=== PATIENT | male | born 1950 | race Asian ===

== ENCOUNTER 2023-04-12 09:23 | Observation (INO) | payer SELFPAY ==
[2023-04-12] VITALS (76 sets, daily range): BP systolic 85–175; BP diastolic 56–112; PULSE 58–136; RESP 0–46; TEMP 36.5–39.1; O2SAT 91–100; BMI 26.0; BMI 23.5
--- NOTE | 2023-04-12 10:13 | XR_ITS ---
[facility] [place] [id number] Patient Name: NANCY REYNOLDS MRN: [id number] date: 1950 Sex: M Assigned Patient Location: ER Current Patient Location: ER Accession/Order Number: [id number] Exam Date: 04/12/2023 10:27 Report Date: 04/12/2023 10:41 At the request of: NHUNG FOX Procedure: XR chest 1V EXAM: XR chest 1V HISTORY: shortness of breath COMPARISON: None. TECHNIQUE: Single view of the chest FINDINGS: Low lung volumes. Unremarkable cardiomediastinal silhouette. No definitive consolidation, pleural effusion, pulmonary congestion or pneumothorax. IMPRESSION: No acute findings. Left basilar opacities difficult to exclude given technique. Electronically authenticated by: KELSY MEDRANO Date: 04/12/2023 10:41
--- NOTE | 2023-04-12 10:13 | ECG_ITS ---
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: : 1950 Requested By: Order Number: [id number] Reading MD: ELENI TRISTAN Measurements Intervals [place] Rate: 131 P: -[id number] AR: -[id number] QRS: 69 QRSD: 74 T: 256 QT: 328 QTc: 405 Interpretive Statements 28731 Atrial fibrillation with rapid ventricular response [address] depression, probably digitalis effect 85166 Twave abnormality, possible lateral ischemia or digitalis effect 19949 Twave abnormality, possible inferior ischemia or digitalis effect 8102 Low QRS voltage in chest leads 9150 abnormal ECG No previous ECG available for comparison Electronically Signed On 04-14-2023 5:39:55 EDT by ELENI TRISTAN
--- NOTE | 2023-04-12 10:23 | CT_ITS ---
[address] [address] Patient Name: NANCY REYNOLDS MRN: [id number] date: 1950 Sex: M Assigned Patient Location: ED.MAIN Current Patient Location: Accession/Order Number: [id number] Exam Date: 04/12/2023 11:40 Report Date: 04/12/2023 12:25 At the request of: NHUNG FOX Procedure: CT abdomen pelvis w con EXAMINATION: CT abdomen pelvis w con HISTORY: pain , abdominal pain, shortness of breath, weakness COMPARISON: No relevant comparison available. TECHNIQUE: Axial, Coronal, and Sagittal images were obtained without and/or with IV contrast as indicated by examination type. Dose reduction techniques were achieved by using automated exposure control and/or adjustment of mA and/or kV according to patient size and/or use of iterative reconstruction technique. FINDINGS: LUNG BASES: No visible pulmonary or pleural disease. LIVER: No enlargement, atrophy, suspicious density, or significant focal lesion. BILIARY: Enlarged gallbladder without appreciable stones, wall thickening, or obstruction. PANCREAS: No lesion, fluid collection, or abnormal duct dilatation. SPLEEN: No enlargement or focal lesion. ADRENALS: 9 mm left adrenal nodule, nonspecific. KIDNEYS: No mass, obstruction, or calcification. BOWEL/MESENTERY: Fluid-filled loops of small bowel without abnormal dilation. No visible mass, obstruction, or bowel wall thickening. AORTA/VASCULAR: No aneurysm or dissection. RETROPERITONEUM: No mass or adenopathy. LYMPH NODES: No adenopathy. URINARY BLADDER: No visible focal wall thickening, lesion, or calculus. PELVIC ORGANS: No visible mass. Pelvic organs appropriate for patient age. ABDOMINAL WALL: No mass or hernia. BONES: No bony lesion or fracture. OTHER: Negative. IMPRESSION: 1.Enlarged gallbladder, likely due to stasis/lack of emptying. No appreciable inflammatory changes or stones. Consider ultrasound evaluation if clinically suspicious. 2.Fluid-filled loops of small bowel without wall thickening or obstruction. Possible mild enteritis. Electronically authenticated by: VISHNU ZHOU Date: 04/12/2023 12:25
--- NOTE | 2023-04-12 10:24 | ED.GENADUL1 ---
HPI - General Adult General Chief complaint: Weakness Stated complaint: GENERRAL WEAKNESS Time Seen by Provider: 04/12/23 10:18 Source: family and spanish interpreter/translator Mode of arrival: Wheelchair Limitations: language barrier Limitations comment: Boat Worker. History of Present Illness HPI narrative: Patient presents to emergency Department via private car with complaint of weakness. Patient traveled [facility] on a direct flight from [place] 5 days ago. Thursday he developed a sore throat. Did not have any other symptoms. Following they started getting weak. Yesterday he was feeling constipated. He denies any cough. At one in the morning he felt very weak he couldn't even get up to go to the bathroom. He was having some low back pain and they found him to have a fever. She states it was Hard for him to stand up because of the weakness. He complained of shortness of breath denies any chest pain. He denies any nausea, vomiting or diarrhea. There are no other sick contacts in the household. He has a history of an arrhythmia for which he is on several to. Patient denies any trauma. He denies any headache. He denies any hematuria, dysuria. Patient's medications (obtained and translated to the best of our knowledge from tongan packing): Dicyclomine 1 mg, candesartan 8 mg, amlodipine 10 mg, carvedilol 10 mg, Vanoprazan 10 mg, Xarelto 10 mg. Related Data Home Medications Medication Instructions Recorded Confirmed Unobtainable 04/12/23 04/12/23 Allergies Allergy/AdvReac Type Severity Reaction Status Date / Time No Known Drug Allergies Allergy Verified 04/12/23 09:46 Review of Systems ROS Narrative ROS: Unless otherwise stated in this report the patient's positive and negative responses for review of systems for constitutional, eyes, ENT, cardiovascular, respiratory, gastrointestinal, neurological, , musculoskeletal and integument systems and related systems to the presenting problem are either stated in the history of present illness or were not pertinent or were negative for the symptoms and/or complaints related to the presenting medical problem. [facility] Medical History (Updated 04/12/23 @ 17:54 by Cande Hargrove) Surgical History (Updated 04/12/23 @ 17:54 by Cande Hargrove) Social History (Updated 04/12/23 @ 17:55 by Cande Hargrove) Within the past year, how often did you have six or more drinks on one occasion: less than monthly Smoking status: Never smoker Non-prescribed substance use: denies use Exam Narrative Exam Narrative: Nurses notes and vital signs reviewed and patient is not hypoxic. General: Ill appearing,in no apparent distress. Skin: Warm, dry, no pallor noted. mottled No Rash Head: Normocephalic, atraumatic. Neck: Supple, non-tender. Eye: Pupils are equal, round and EOMI. No scleral icterus. Ears, Nose, Mouth, and Throat: TM clear, no posterior oropharynx erythema or nasal mucosal hypertrophy, uvula is mid-line Oral mucosa is moist Cardiovascular: Irregular tachycardia without murmur, gallop or rub. Respiratory: Tachypneic, no accessory muscle use or respiratory distress. Lungs: Occasional bilateral rhonchi Chest Wall: no tenderness Back: No midline thoracic or lumbar vertebral tenderness. No CVA tenderness Musculoskeletal: normal ROM, no calf or popliteal tenderness, no lower extremity edema/swelling GI: Abdomen is soft, non-distended. Normal bowel sounds. No masses appreciated. mild llq tenderness to palpation. No rebound, guarding, or rigidity noted. Neurological: A&O x4. No cranial nerve dysfunction observed. No truncal ataxia. Moves all extremities. Sensation intact. Psychiatric: Cooperative Constitutional Vital Signs - 24 hr 04/12/23 10:30 04/12/23 10:33 04/12/23 11:10 Temperature 99.9 F H Pulse Rate Pulse Rate [Monitor] 121 H Respiratory Rate 32 H Blood Pressure Blood Pressure [Right Arm] 134/77 H Pulse Oximetry 98 98 Oxygen Delivery Method Nasal Cannula Room Air Oxygen Delivery Flow Rate 3 04/12/23 11:32 04/12/23 11:59 04/12/23 12:19 Temperature 102.4 F H Pulse Rate 103 H Pulse Rate [Monitor] Respiratory Rate 24 Blood Pressure Blood Pressure [Right Arm] Pulse Oximetry 98 97 Oxygen Delivery Method Nasal Cannula Oxygen Delivery Flow Rate 2 2 04/12/23 13:41 04/12/23 15:38 04/12/23 16:12 Temperature 98.9 F Pulse Rate 84 77 Pulse Rate [Monitor] Respiratory Rate 18 18 Blood Pressure 102/69 106/72 117/65 Blood Pressure [Right Arm] Pulse Oximetry 96 94 L 95 Oxygen Delivery Method Room Air Oxygen Delivery Flow Rate 1 04/12/23 09:59 04/12/23 10:00 04/12/23 10:13 Temperature Pulse Rate 136 H 134 H 120 H Pulse Rate [Monitor] Respiratory Rate 42 H 40 H 46 H Blood Pressure Blood Pressure [Right Arm] Pulse Oximetry 96 91 L 93 L Oxygen Delivery Method Oxygen Delivery Flow Rate 04/12/23 10:14 04/12/23 10:23 04/12/23 10:30 Temperature Pulse Rate 120 H 125 H 110 H Pulse Rate [Monitor] Respiratory Rate 39 H 39 H 34 H Blood Pressure 175/112 H 133/86 H 134/77 H Blood Pressure [Right Arm] Pulse Oximetry 98 98 98 Oxygen Delivery Method Oxygen Delivery Flow Rate 04/12/23 10:45 04/12/23 11:00 04/12/23 11:15 Temperature Pulse Rate 101 H 116 H 105 H Pulse Rate [Monitor] Respiratory Rate 30 H 24 32 H Blood Pressure 154/87 H 130/98 H 148/107 H Blood Pressure [Right Arm] Pulse Oximetry 98 Oxygen Delivery Method Oxygen Delivery Flow Rate 04/12/23 11:26 04/12/23 11:31 04/12/23 11:54 Temperature Pulse Rate 97 H 86 Pulse Rate [Monitor] Respiratory Rate 30 H 10 L Blood Pressure 152/81 H 123/85 H Blood Pressure [Right Arm] Pulse Oximetry 98 Oxygen Delivery Method Oxygen Delivery Flow Rate 04/12/23 11:56 04/12/23 11:58 04/12/23 12:00 Temperature Pulse Rate 132 H 102 H 93 H Pulse Rate [Monitor] Respiratory Rate 28 H 25 H 23 Blood Pressure 127/80 H 119/76 Blood Pressure [Right Arm] Pulse Oximetry 97 97 97 Oxygen Delivery Method Oxygen Delivery Flow Rate 04/12/23 12:15 04/12/23 12:30 04/12/23 12:45 Temperature Pulse Rate 91 H 87 93 H Pulse Rate [Monitor] Respiratory Rate 20 21 20 Blood Pressure 114/72 122/64 H 111/78 Blood Pressure [Right Arm] Pulse Oximetry 98 97 97 Oxygen Delivery Method Oxygen Delivery Flow Rate 04/12/23 13:00 04/12/23 13:15 04/12/23 13:30 Temperature Pulse Rate 106 H 97 H 92 H Pulse Rate [Monitor] Respiratory Rate 19 20 18 Blood Pressure 115/79 106/73 102/69 Blood Pressure [Right Arm] Pulse Oximetry 96 96 96 Oxygen Delivery Method Oxygen Delivery Flow Rate 04/12/23 13:45 04/12/23 14:00 04/12/23 14:15 Temperature Pulse Rate 88 103 H 80 Pulse Rate [Monitor] Respiratory Rate 17 18 16 Blood Pressure 110/67 104/63 95/72 Blood Pressure [Right Arm] Pulse Oximetry 96 96 96 Oxygen Delivery Method Oxygen Delivery Flow Rate 04/12/23 14:30 04/12/23 14:45 04/12/23 15:00 Temperature Pulse Rate 81 85 94 H Pulse Rate [Monitor] Respiratory Rate 16 16 18 Blood Pressure 93/65 95/70 98/62 Blood Pressure [Right Arm] Pulse Oximetry 97 96 97 Oxygen Delivery Method Oxygen Delivery Flow Rate 04/12/23 15:15 04/12/23 15:25 04/12/23 15:30 Temperature Pulse Rate 79 94 H 76 Pulse Rate [Monitor] Respiratory Rate 18 19 18 Blood Pressure 85/60 L 106/68 106/72 Blood Pressure [Right Arm] Pulse Oximetry 97 95 92 L Oxygen Delivery Method Oxygen Delivery Flow Rate 04/12/23 15:45 04/12/23 16:00 04/12/23 16:15 Temperature Pulse Rate 73 77 82 Pulse Rate [Monitor] Respiratory Rate 18 17 18 Blood Pressure 106/69 117/65 91/64 Blood Pressure [Right Arm] Pulse Oximetry 94 L 96 95 Oxygen Delivery Method Oxygen Delivery Flow Rate 04/12/23 16:30 04/12/23 16:45 04/12/23 09:46 Temperature 99.6 F Pulse Rate 80 75 Pulse Rate [Monitor] 123 H Respiratory Rate 18 17 36 H Blood Pressure 85/61 L 103/59 L Blood Pressure [Right Arm] 164/104 H Pulse Oximetry 96 96 Oxygen Delivery Method Nasal Cannula Oxygen Delivery Flow Rate Course Reevaluation(s) Reevaluation #1: Patient's heart rate improved after the 30ml/per kilogram IV fluids. Consultations Consultation #1: Patient was discussed with Dr. Wyman who advised the patient needs to have a HIDA scan done tomorrow. He advised the patient can be admitted to our facility with the surgery consult tomorrow morning. Vital Signs Vital signs: Vital Signs Temperature 99.6 F 04/12/23 09:46 Pulse Rate 123 H 04/12/23 09:46 Respiratory Rate 36 H 04/12/23 09:46 Blood Pressure 164/104 H 04/12/23 09:46 Pulse Oximetry 96 04/12/23 09:46 Oxygen Delivery Method Nasal Cannula 04/12/23 09:46 Temperature 97.7 F 04/12/23 19:15 Pulse Rate 68 04/12/23 19:08 Respiratory Rate 16 04/12/23 19:08 Blood Pressure 99/56 L 04/12/23 19:08 Pulse Oximetry 96 04/12/23 17:20 Oxygen Delivery Method Room Air 04/12/23 17:20 Oxygen Delivery Flow Rate 1 04/12/23 13:41 Medical Decision Making MDM Narrative Medical decision making narrative: full Covid precautions were maintained while evaluating the patient. Patient had an IV established. 30 Ml/ kilogram ns boluses were given to the patient. He was started on Zosyn and vancomycin. The patients heart rate improved with the fluid bolus. He was given Tylenol and ibuprofen which helped some defervescence. He rested and his oxygenation remained stable. All results were discussed with patient's daughter and at the bedside and brought son-in-law. [email or web address] search engine was used to determine the patient's home medications. Patient was discussed with Dr. Wyman was advised the patient can be admitted to our facility. CT scan abdomen and pelvis showed possible cholecystitis and Was Ordered. Those Results Were Discussed with the Surgeon. The HIDA Scan Is Recommended for Tomorrow. The Patient Was Tachycardic When He Arrived to the Emergency Department Troponin Levels Were Checked and the 2nd Troponin Was Elevated but the 3rd Troponin Remained Stable. His Most Likely Due to the Patient's Ventricular Rate and Secondary Injury Not to Any Acute Myocardial Infarction. The Patient Is on xarelto. Patient's lactic acidosis resolved with treatment. Patient's clinical condition and perfusion looked better and skin color improved with treatment.The patient was discussed with Dr. Cartagena for admission. Medical Records Medical records reviewed: Yes I reviewed the patient's medical records Lab Data Lab results reviewed: Yes I reviewed the patient's lab results Labs: Lab Results 04/12/23 04/12/23 04/12/23 Range/Units 09:57 10:00 10:55 WBC 7.6 (4.0-11.0) 10^3/uL RBC 5.13 (4.70-6.10) 10^6/uL Hgb 15.2 (14.0-18.0) g/dL Hct 45.2 (42.0-54.0) % MCV 88.1 (80.0-94.0) fL MCH 29.6 (25.9-34.0) pg MCHC 33.6 (29.9-35.2) g/dL RDW 13.1 (11.0-15.0) % Plt Count 234 (150-450) 10^3/uL MPV 9.5 (9.5-13.5) fL Neut % (Auto) 88.5 H (43.0-75.0) % Lymph % (Auto) 5.4 L (20.5-60.0) % [place] % (Auto) 5.4 (1.7-12.0) % Eos % (Auto) 0.1 L (0.9-7.0) % Baso % (Auto) 0.1 L (0.2-2.0) % Neut # (Auto) 6.8 H (1.4-6.5) 10^3/uL Lymph # (Auto) 0.4 L (1.2-3.8) 10^3/uL [place] # (Auto) 0.4 (0.3-0.8) 10^3/uL Eos # (Auto) 0.0 (0.0-0.7) 10^3/uL Baso # (Auto) 0.0 (0.0-0.1) 10^3/uL PT 12.0 H (9.0-11.6) sec INR 1.14 Sodium 129 L (136-145) mmol/L Potassium 3.5 (3.5-5.1) mmol/L Chloride 97 L (98-107) mmol/L Carbon Dioxide 24.4 (21.0-32.0) mmol/L Anion Gap 11.1 BUN 18.0 (7.0-18.0) mg/dL Creatinine 1.31 H (0.70-1.30) mg/dL Est GFR ( Amer) >60 (>=60) Est GFR (Non-Af Amer) 53 L (>=60) BUN/Creatinine Ratio 13.7 Glucose 118 H (74-106) mg/dL Lactate 2.9 H* (0.4-2.0) mmol/L Calcium 8.3 L (8.5-10.1) mg/dL Total Bilirubin 1.9 H (0.2-1.0) mg/dL AST 123 H (15-37) U/L ALT 147 H (16-63) U/L Troponin I High Sens 11.3 (4.0-76.1) pg/mL Total Protein 7.8 (6.4-8.2) g/dL Albumin 3.7 (3.4-5.0) g/dL Globulin 4.1 g/dL Albumin/Globulin Ratio 0.9 Lipase (73.0-393.0) U/L Urine Color (YELLOW) Urine Clarity (CLEAR) Urine pH (5.0-9.0) Ur Specific [place] (1.005-1.025) Urine Protein (NEG/TRACE) mg/dL Urine Glucose (UA) (NEGATIVE) mg/dL Urine Ketones (NEGATIVE) mg/dL Urine Occult Blood (NEGATIVE) Urine Nitrite (NEGATIVE) Urine Bilirubin (NEGATIVE) Urine Urobilinogen (0.2-1.0) EU/dL Ur Leukocyte Esterase (NEGATIVE) Urine RBC (0-2) #/HPF Urine WBC (NONE SEEN) #/HPF Ur Squamous Epith Cells (NONE/RARE) #/LPF Ur Culture Indicated? Adenovirus (PCR) Not detected (NOT DETECTE) C. pneumoniae DNA (PCR) Not detected (NOT DETECTE) Coronavirus Type OC43 Not detected (NOT DETECTE) Coronavirus Type HKU1 Not detected (NOT DETECTE) Coronavirus Type 229E Not detected (NOT DETECTE) Coronavirus Type NL63 Not detected (NOT DETECTE) Human Metapneumovir PCR Not detected (NOT DETECTE) M. pneumoniae (PCR) Not detected (NOT DETECTE) Parainfluenza PCR Not detected (NOT DETECTE) Parainfluenza 2 (PCR) Not detected (NOT DETECTE) Parainfluenza 3 (PCR) Not detected (NOT DETECTE) Parainfluenza 4 (PCR) Not detected (NOT DETECTE) RSV (RT-PCR) Not detected (NOT DETECTE) Entero/Rhino (PCR) Not detected (NOT DETECTE) SARS-CoV-2 (PCR) Not detected (NOT DETECTE) Streptococcus Screen Negative Bordetella pertussis (PCR) Not detected (NOT DETECTE) B parapertussis DNA PCR Not detected (NOT DETECTE) Influenza Type A (PCR) Not detected Influenza Type B (PCR) Not detected (NOT DETECTE) 04/12/23 04/12/23 04/12/23 Range/Units 11:26 11:51 12:47 WBC (4.0-11.0) 10^3/uL RBC (4.70-6.10) 10^6/uL Hgb (14.0-18.0) g/dL Hct (42.0-54.0) % MCV (80.0-94.0) fL MCH (25.9-34.0) pg MCHC (29.9-35.2) g/dL RDW (11.0-15.0) % Plt Count (150-450) 10^3/uL MPV (9.5-13.5) fL Neut % (Auto) (43.0-75.0) % Lymph % (Auto) (20.5-60.0) % [place] % (Auto) (1.7-12.0) % Eos % (Auto) (0.9-7.0) % Baso % (Auto) (0.2-2.0) % Neut # (Auto) (1.4-6.5) 10^3/uL Lymph # (Auto) (1.2-3.8) 10^3/uL [place] # (Auto) (0.3-0.8) 10^3/uL Eos # (Auto) (0.0-0.7) 10^3/uL Baso # (Auto) (0.0-0.1) 10^3/uL PT (9.0-11.6) sec INR Sodium (136-145) mmol/L Potassium (3.5-5.1) mmol/L Chloride (98-107) mmol/L Carbon Dioxide (21.0-32.0) mmol/L Anion Gap BUN (7.0-18.0) mg/dL Creatinine (0.70-1.30) mg/dL Est GFR ( Amer) (>=60) Est GFR (Non-Af Amer) (>=60) BUN/Creatinine Ratio Glucose (74-106) mg/dL Lactate 1.4 (0.4-2.0) mmol/L Calcium (8.5-10.1) mg/dL Total Bilirubin (0.2-1.0) mg/dL AST (15-37) U/L ALT (16-63) U/L Troponin I High Sens 80.1 H* (4.0-76.1) pg/mL Total Protein (6.4-8.2) g/dL Albumin (3.4-5.0) g/dL Globulin g/dL Albumin/Globulin Ratio Lipase 66.0 L (73.0-393.0) U/L Urine Color Lt. yellow (YELLOW) Urine Clarity Clear (CLEAR) Urine pH 6.0 (5.0-9.0) Ur Specific [place] 1.020 (1.005-1.025) Urine Protein Negative (NEG/TRACE) mg/dL Urine Glucose (UA) Negative (NEGATIVE) mg/dL Urine Ketones Negative (NEGATIVE) mg/dL Urine Occult Blood Small A (NEGATIVE) Urine Nitrite Negative (NEGATIVE) Urine Bilirubin Negative (NEGATIVE) Urine Urobilinogen 1.0 (0.2-1.0) EU/dL Ur Leukocyte Esterase Negative (NEGATIVE) Urine RBC 0-2 (0-2) #/HPF Urine WBC None seen (NONE SEEN) #/HPF Ur Squamous Epith Cells None seen (NONE/RARE) #/LPF Ur Culture Indicated? No Adenovirus (PCR) (NOT DETECTE) C. pneumoniae DNA (PCR) (NOT DETECTE) Coronavirus Type OC43 (NOT DETECTE) Coronavirus Type HKU1 (NOT DETECTE) Coronavirus Type 229E (NOT DETECTE) Coronavirus Type NL63 (NOT DETECTE) Human Metapneumovir PCR (NOT DETECTE) M. pneumoniae (PCR) (NOT DETECTE) Parainfluenza PCR (NOT DETECTE) Parainfluenza 2 (PCR) (NOT DETECTE) Parainfluenza 3 (PCR) (NOT DETECTE) Parainfluenza 4 (PCR) (NOT DETECTE) RSV (RT-PCR) (NOT DETECTE) Entero/Rhino (PCR) (NOT DETECTE) SARS-CoV-2 (PCR) (NOT DETECTE) Streptococcus Screen Bordetella pertussis (PCR) (NOT DETECTE) B parapertussis DNA PCR (NOT DETECTE) Influenza Type A (PCR) Influenza Type B (PCR) (NOT DETECTE) 04/12/23 Range/Units 15:28 WBC (4.0-11.0) 10^3/uL RBC (4.70-6.10) 10^6/uL Hgb (14.0-18.0) g/dL Hct (42.0-54.0) % MCV (80.0-94.0) fL MCH (25.9-34.0) pg MCHC (29.9-35.2) g/dL RDW (11.0-15.0) % Plt Count (150-450) 10^3/uL MPV (9.5-13.5) fL Neut % (Auto) (43.0-75.0) % Lymph % (Auto) (20.5-60.0) % [place] % (Auto) (1.7-12.0) % Eos % (Auto) (0.9-7.0) % Baso % (Auto) (0.2-2.0) % Neut # (Auto) (1.4-6.5) 10^3/uL Lymph # (Auto) (1.2-3.8) 10^3/uL [place] # (Auto) (0.3-0.8) 10^3/uL Eos # (Auto) (0.0-0.7) 10^3/uL Baso # (Auto) (0.0-0.1) 10^3/uL PT (9.0-11.6) sec INR Sodium (136-145) mmol/L Potassium (3.5-5.1) mmol/L Chloride (98-107) mmol/L Carbon Dioxide (21.0-32.0) mmol/L Anion Gap BUN (7.0-18.0) mg/dL Creatinine (0.70-1.30) mg/dL Est GFR ( Amer) (>=60) Est GFR (Non-Af Amer) (>=60) BUN/Creatinine Ratio Glucose (74-106) mg/dL Lactate (0.4-2.0) mmol/L Calcium (8.5-10.1) mg/dL Total Bilirubin (0.2-1.0) mg/dL AST (15-37) U/L ALT (16-63) U/L Troponin I High Sens 95.1 H* (4.0-76.1) pg/mL Total Protein (6.4-8.2) g/dL Albumin (3.4-5.0) g/dL Globulin g/dL Albumin/Globulin Ratio Lipase (73.0-393.0) U/L Urine Color (YELLOW) Urine Clarity (CLEAR) Urine pH (5.0-9.0) Ur Specific [place] (1.005-1.025) Urine Protein (NEG/TRACE) mg/dL Urine Glucose (UA) (NEGATIVE) mg/dL Urine Ketones (NEGATIVE) mg/dL Urine Occult Blood (NEGATIVE) Urine Nitrite (NEGATIVE) Urine Bilirubin (NEGATIVE) Urine Urobilinogen (0.2-1.0) EU/dL Ur Leukocyte Esterase (NEGATIVE) Urine RBC (0-2) #/HPF Urine WBC (NONE SEEN) #/HPF Ur Squamous Epith Cells (NONE/RARE) #/LPF Ur Culture Indicated? Adenovirus (PCR) (NOT DETECTE) C. pneumoniae DNA (PCR) (NOT DETECTE) Coronavirus Type OC43 (NOT DETECTE) Coronavirus Type HKU1 (NOT DETECTE) Coronavirus Type 229E (NOT DETECTE) Coronavirus Type NL63 (NOT DETECTE) Human Metapneumovir PCR (NOT DETECTE) M. pneumoniae (PCR) (NOT DETECTE) Parainfluenza PCR (NOT DETECTE) Parainfluenza 2 (PCR) (NOT DETECTE) Parainfluenza 3 (PCR) (NOT DETECTE) Parainfluenza 4 (PCR) (NOT DETECTE) RSV (RT-PCR) (NOT DETECTE) Entero/Rhino (PCR) (NOT DETECTE) SARS-CoV-2 (PCR) (NOT DETECTE) Streptococcus Screen Bordetella pertussis (PCR) (NOT DETECTE) B parapertussis DNA PCR (NOT DETECTE) Influenza Type A (PCR) Influenza Type B (PCR) (NOT DETECTE) ECG Data Attestation: I personally reviewed and interpreted this ECG as follows: Critical Care Time Critical Care Time Attestation: Critical Care Time: 60 minutes, critical care time is separate from any procedures that are performed. The following was considered in the determination of critical care but not limited to the level medical decision-making, intensive cardiac and/or respiratory monitor, frequent vital sign monitoring, evaluation of laboratory studies, evaluation of a radiographic studies, oxygen monitoring and constant monitoring. Discharge Plan Discharge Chief Complaint: Weakness Clinical Impression: Sepsis, Atrial fibrillation with rapid ventricular response, Acalculous cholecystitis Patient Disposition: Admitted As Inpatient Time of Disposition Decision: 16:20 Condition: Good Discharge Date/Time: 04/12/23 16:59
[2023-04-12] MEDS: 0.9 % SODIUM CHLORIDE 1,000 ML 999 ML IV (10:36)
[2023-04-12 10:42] LABS: Basophils Percent Auto 0.1 % (0.2-2.0); Eosinophils Percent Auto 0.1 % (0.9-7.0); Hematocrit 45.2 % (42.0-54.0); Hemoglobin 15.2 g/dL (14.0-18.0); Immature Granulocytes Abs Auto 0.04 10^3/uL (0.00-0.03); Immature Granulocytes Pct Auto 0.5 % (0.0-0.5); Lymphocytes Absolute Auto 0.4 10^3/uL (1.2-3.8); Lymphocytes Percent Auto 5.4 % (20.5-60.0); Mean Corpuscular HGB Conc 33.6 g/dL (29.9-35.2); Mean Corpuscular Hemoglobin 29.6 pg (25.9-34.0); Mean Corpuscular Volume 88.1 fL (80.0-94.0); Mean Platelet Volume 9.5 fL (9.5-13.5); Monocytes Absolute Auto 0.4 10^3/uL (0.3-0.8); Monocytes Percent Auto 5.4 % (1.7-12.0); Neutrophils Absolute Auto 6.8 10^3/uL (1.4-6.5); Neutrophils Percent Auto 88.5 % (43.0-75.0); Platelet Count 234 10^3/uL (150-450); Red Blood Count 5.13 10^6/uL (4.70-6.10); Red Cell Distribution Width 13.1 % (11.0-15.0); White Blood Count 7.6 10^3/uL (4.0-11.0)
[2023-04-12 10:44] LABS: Adenovirus NOT DETECTED (NOT DETECTE); Bordetella parapertussis NOT DETECTED (NOT DETECTE); Coronavirus 229E NOT DETECTED (NOT DETECTE); Coronavirus HKU1 NOT DETECTED (NOT DETECTE); Coronavirus NL63 NOT DETECTED (NOT DETECTE); Coronavirus OC43 NOT DETECTED (NOT DETECTE); Human Metapneumovirus NOT DETECTED (NOT DETECTE); Human Rhinovirus/Enterovirus NOT DETECTED (NOT DETECTE); Influenza A NOT DETECTED; Influenza B NOT DETECTED (NOT DETECTE); Mycoplasma pneumoniae NOT DETECTED (NOT DETECTE); Parainfluenza Virus 1 NOT DETECTED (NOT DETECTE); Parainfluenza Virus 2 NOT DETECTED (NOT DETECTE); Parainfluenza Virus 3 NOT DETECTED (NOT DETECTE); Parainfluenza Virus 4 NOT DETECTED (NOT DETECTE); Respiratory Syncytial Virus NOT DETECTED (NOT DETECTE); SARS-CoV-2 NOT DETECTED (NOT DETECTE)
[2023-04-12 10:52] LABS: INR 1.14
[2023-04-12 10:55] LABS: Alanine Aminotransferase 147 U/L (16-63); Albumin Globulin Ratio 0.9; Albumin Level 3.7 g/dL (3.4-5.0); Alkaline Phosphatase 169 U/L (46-116); Anion Gap 11.1; Aspartate Amino Transferase 123 U/L (15-37); BUN Creatinine Ratio 13.7; Bilirubin Total 1.9 mg/dL (0.2-1.0); Calcium 8.3 mg/dL (8.5-10.1); Carbon Dioxide 24.4 mmol/L (21.0-32.0); Chloride 97 mmol/L (98-107); Estimated GFR (African America >60 (>=60); Estimated GFR (Non-African Ame 53 (>=60); Globulin 4.1 g/dL; Glucose 118 mg/dL (74-106); Potassium 3.5 mmol/L (3.5-5.1); Sodium 129 mmol/L (136-145); Total Protein 7.8 g/dL (6.4-8.2); Troponin I High Sensitivity 11.3 pg/mL (4.0-76.1)
[2023-04-12 11:01] LABS: Lactate/Lactic Acid 2.9 mmol/L (0.4-2.0)
[2023-04-12 11:08] LABS: Internal Control Within Normal Limits; Strep A Antigen Screen Negative
[2023-04-12] MEDS: ACETAMINOPHEN 500 MG TABLET 1000 MG PO (11:10)
[2023-04-12] MEDS: 0.9 % SODIUM CHLORIDE 2,000 ML 666.667 ML IV (11:22)
[2023-04-12 11:48] LABS: Bilirubin Urine NEGATIVE (NEGATIVE); Blood Urine SMALL (NEGATIVE); Clarity Urine CLEAR (CLEAR); Color Urine LT. YELLOW (YELLOW); Glucose Urine UA NEGATIVE (NEGATIVE); Ketones Urine NEGATIVE (NEGATIVE); Leukocyte Esterase Urine NEGATIVE (NEGATIVE); Nitrite Urine NEGATIVE (NEGATIVE); Protein Urine NEGATIVE (NEG/TRACE)
[2023-04-12 11:51] LABS: Urine Microscopic Indicated YES
--- NOTE | 2023-04-12 11:55 | PC.NURSE ---
pt return to ER from radiology. family updated and call light in reach
[2023-04-12 11:58] LABS: RBC Urine 0-2 #/HPF (0-2); WBC Urine NONE SEEN #/HPF (NONE SEEN)
[2023-04-12 11:59] LABS: Bacteria Urine NONE SEEN #/HPF (NONE SEEN); Cast Seen? NONE SEEN #/LPF (NONE SEEN); Mucus Urine NONE SEEN (NONE SEEN); Squamous Epithelial Cell Urine NONE SEEN #/LPF (NONE/RARE); Urine Culture Indicated NO
[2023-04-12] MEDS: IBUPROFEN 600 MG TABLET PO (12:28)
--- NOTE | 2023-04-12 12:36 | US_ITS ---
The [address] [address] Patient Name: NANCY REYNOLDS MRN: [id number] date: 1950 Sex: M Assigned Patient Location: ER Current Patient Location: ER Accession/Order Number: [id number] Exam Date: 04/12/2023 14:00 Report Date: 04/12/2023 14:49 At the request of: NHUNG FOX Procedure: US right upper quadrant EXAM: US right upper quadrant EXAM DATE: 04/12/2023 12:00 PM MDT COMPARISON: CT abdomen and pelvis 04/12/2023. INDICATION: ABDOMINAL PAIN TECHNIQUE: Limited ultrasound of the right upper quadrant of abdomen was performed. Images were reviewed on a separate workstation. FINDINGS: Liver is normal in size and echotexture. Liver length measures 13 cm. No focal intraparenchymal abnormality detected. Gallbladder is distended and contains sludge. No shadowing gallstones are identified. No gallbladder wall thickening or pericholecystic fluid noted. Gallbladder wall measures 2 mm. Sonographic Rubio's sign is reportedly absent. No intrahepatic or extrahepatic biliary ductal dilatation noted. CBD measures 4.9 mm. Portal vein is patent with hepatopetal flow. Pancreas is partially obscured by bowel gas; visualized is parenchyma appears homogeneous. Right kidney measures 11 x 5.7 x 5.9 cm. Renal cortex measures 1.7 cm. No hydronephrosis noted. No free fluid noted in the right upper abdomen. IMPRESSION: 1. Distended, sludge-containing gallbladder is nonspecific and may be secondary to stasis/lack of emptying. No secondary sonographic features of acute cholecystitis such as gallbladder wall thickening or pericholecystic fluid identified. Sonographic Rubio's sign is also absent. If a clinical concern for cholecystitis persists, hepatobiliary scintigraphy may be of benefit. 2. No shadowing gallstones or bile duct dilation identified. 3. No focal hepatic lesion or free fluid noted at the right upper quadrant. 4. No hydronephrosis noted on the right. Electronically authenticated by: WILFRID NEGRETE Date: 04/12/2023 14:49
[2023-04-12] MEDS: PIPERACILLIN SODIUM/TAZOBACTAM 4.5 GM in 0.9 % SODIUM CHLORIDE 50 ML IV (13:14)
[2023-04-12 13:19] LABS: Troponin I High Sensitivity 80.1 pg/mL (4.0-76.1)
[2023-04-12 13:40] LABS: Lactate/Lactic Acid 1.4 mmol/L (0.4-2.0)
[2023-04-12] MEDS: VANCOMYCIN HCL 1,250 MG in 0.9 % SODIUM CHLORIDE 250 ML 250 MG IV (14:03)
[2023-04-12 15:57] LABS: Troponin I High Sensitivity 95.1 pg/mL (4.0-76.1)
--- NOTE | 2023-04-12 16:32 | PC.NURSE ---
ER at bedside talking to family re decision to admit. Family has given this nurse the home meds to take up to ICU for ICU nurses to see prior to these being placed on pt's profile
--- NOTE | 2023-04-12 17:45 | PC.NURSE ---
, daughter and son in law at bedside. all assist with admission assessment. pt oriented to room and call light, instructed not to get up withhout assistance. denies pain. uses family as translators.
[2023-04-12] MEDS: HYOSCYAMINE SULFATE 0.125 MG TAB.SUBL PO ×2 (17:51→22:08)
[2023-04-12] MEDS: FAMOTIDINE/PF 20 MG/2 ML VIAL IV (17:51)
[2023-04-12] MEDS: LACTATED RINGER'S SOLUTION 1,000 ML 100 ML IV (17:51)
[2023-04-12] MEDS: CIPROFLOXACIN IN 5 % DEXTROSE 400 MG/200 ML PIGGYBACK 200 MG IV (18:03)
[2023-04-12] MEDS: PIPERACILLIN SODIUM/TAZOBACTAM 3.375 GM in 0.9 % SODIUM CHLORIDE 50 ML IV (22:07)
[2023-04-12 23:03] LABS: A. calcoaceticus-baumannii Cpx NOT DETECTED (NOT DETECTE); Bacteroides fragilis NOT DETECTED (NOT DETECTE); CTX-M NOT DETECTED (NOT DETECTE); Candida albicans NOT DETECTED (NOT DETECTE); Candida auris NOT DETECTED (NOT DETECTE); Candida glabrata NOT DETECTED (NOT DETECTE); Candida krusei NOT DETECTED (NOT DETECTE); Candida parapsilosis NOT DETECTED (NOT DETECTE); Candida tropicalis NOT DETECTED (NOT DETECTE); Enterobacter cloacae complex NOT DETECTED (NOT DETECTE); Enterococcus faecalis NOT DETECTED (NOT DETECTE); Enterococcus faecium NOT DETECTED (NOT DETECTE); Haemophilus influenzae NOT DETECTED (NOT DETECTE); IMP NOT DETECTED (NOT DETECTE); KPC NOT DETECTED (NOT DETECTE); Klebsiella aerogenes NOT DETECTED (NOT DETECTE); Klebsiella pneumoniae group NOT DETECTED (NOT DETECTE); Listeria monocytogenes NOT DETECTED (NOT DETECTE); NDM NOT DETECTED (NOT DETECTE); Neisseria meningitidis NOT DETECTED (NOT DETECTE); OXA-48-like NOT DETECTED (NOT DETECTE); Proteus spp. NOT DETECTED (NOT DETECTE); Pseudomonas aeruginosa NOT DETECTED (NOT DETECTE); Salmonella spp. NOT DETECTED (NOT DETECTE); Serratia marcescens NOT DETECTED (NOT DETECTE); Staphylococcus epidermidis NOT DETECTED (NOT DETECTE); Staphylococcus lugdunensis NOT DETECTED (NOT DETECTE); Staphylococcus spp. NOT DETECTED (NOT DETECTE); Stenotrophomonas maltophilia NOT DETECTED (NOT DETECTE); Streptococcus agalactiae NOT DETECTED (NOT DETECTE); Streptococcus pneumoniae NOT DETECTED (NOT DETECTE); Streptococcus pyogenes NOT DETECTED (NOT DETECTE); Streptococcus spp. NOT DETECTED (NOT DETECTE); VIM NOT DETECTED (NOT DETECTE); mcr-1 NOT DETECTED (NOT DETECTE); mecA/C NOT DETECTED (NOT DETECTE); mecA/C and MREJ (MRSA) NOT DETECTED (NOT DETECTE); vanA/B NOT DETECTED (NOT DETECTE)
[2023-04-12 23:05] LABS: Enterobacterales DETECTED (NOT DETECTE)
[2023-04-13] VITALS (12 sets, daily range): BP systolic 117–124; BP diastolic 74–77; PULSE 60–83; RESP 7–20; TEMP 36.4–36.7; O2SAT 97–98
[2023-04-13] MEDS: LACTATED RINGER'S SOLUTION 1,000 ML 100 ML IV (03:25)
[2023-04-13] MEDS: FAMOTIDINE/PF 20 MG/2 ML VIAL IV (03:57)
[2023-04-13 04:34] LABS: Basophils Percent Auto 0.3 % (0.2-2.0); Eosinophils Absolute Auto 0.1 10^3/uL (0.0-0.7); Eosinophils Percent Auto 0.7 % (0.9-7.0); Hematocrit 37.7 % (42.0-54.0); Hemoglobin 12.5 g/dL (14.0-18.0); Immature Granulocytes Abs Auto 0.06 10^3/uL (0.00-0.03); Immature Granulocytes Pct Auto 0.5 % (0.0-0.5); Lymphocytes Absolute Auto 0.4 10^3/uL (1.2-3.8); Lymphocytes Percent Auto 3.4 % (20.5-60.0); Mean Corpuscular HGB Conc 33.2 g/dL (29.9-35.2); Mean Corpuscular Hemoglobin 29.1 pg (25.9-34.0); Mean Corpuscular Volume 87.9 fL (80.0-94.0); Mean Platelet Volume 9.8 fL (9.5-13.5); Monocytes Percent Auto 8.3 % (1.7-12.0); Neutrophils Percent Auto 86.8 % (43.0-75.0); Platelet Count 152 10^3/uL (150-450); Red Blood Count 4.29 10^6/uL (4.70-6.10); Red Cell Distribution Width 13.6 % (11.0-15.0); White Blood Count 11.5 10^3/uL (4.0-11.0)
[2023-04-13] MEDS: CIPROFLOXACIN IN 5 % DEXTROSE 400 MG/200 ML PIGGYBACK 200 MG IV (04:50)
[2023-04-13] MEDS: PIPERACILLIN SODIUM/TAZOBACTAM 3.375 GM in 0.9 % SODIUM CHLORIDE 50 ML IV (04:52)
[2023-04-13 04:55] LABS: Alanine Aminotransferase 88 U/L (16-63); Albumin Globulin Ratio 0.8; Albumin Level 2.5 g/dL (3.4-5.0); Alkaline Phosphatase 102 U/L (46-116); Anion Gap 11.6; Aspartate Amino Transferase 63 U/L (15-37); BUN Creatinine Ratio 12.6; Bilirubin Total 1.3 mg/dL (0.2-1.0); Calcium 7.5 mg/dL (8.5-10.1); Carbon Dioxide 24.7 mmol/L (21.0-32.0); Chloride 108 mmol/L (98-107); Estimated GFR (African America >60 (>=60); Estimated GFR (Non-African Ame 55 (>=60); Globulin 3.1 g/dL; Glucose 100 mg/dL (74-106); Potassium 3.3 mmol/L (3.5-5.1); Sodium 141 mmol/L (136-145); Total Protein 5.6 g/dL (6.4-8.2); Troponin I High Sensitivity 40.5 pg/mL (4.0-76.1)
[2023-04-13] MEDS: HYOSCYAMINE SULFATE 0.125 MG TAB.SUBL PO (05:00)
[2023-04-13] MEDS: FUROSEMIDE 40 MG/4 ML VIAL IVP (06:07)
--- NOTE | 2023-04-13 08:38 | P.HP_ITS ---
H&P: HPI History of Present Illness Chief complaint: GENERAL WEAKNESS, AFIB WITH RVR, ACALCULUS CHOLEC Narrative: Patient was admitted to the emergency room with abdominal pain, generalized weakness and atrial fibrillation with RVR. His rate was improved in ER. Still generally weak. CT scan suggested possible acute cholecystitis but ultrasound could not confirm that. He is not having any further pain. [facility] Medical History (Updated 04/13/23 @ 14:20 by Ezekiel Shanks MD) Surgical History (Updated 04/13/23 @ 14:07 by Ezekiel Shanks MD) Social History (Updated 04/12/23 @ 17:55 by Cande Hargrove) Within the past year, how often did you have six or more drinks on one occasion: less than monthly Smoking status: Never smoker Non-prescribed substance use: denies use Meds Home Medications and Allergies Home Medications Medication Instructions Recorded Confirmed Type ciprofloxacin HCl 500 mg tablet 500 mg PO Q12H #20 tabs 04/13/23 Rx (Cipro) hyoscyamine sulfate 0.125 mg 0.125 mg PO Q6H PRN abdominal pain 04/13/23 Rx sublingual tablet (Levsin/SL) #14 tabs Allergies Allergy/AdvReac Type Severity Reaction Status Date / Time No Known Drug Allergies Allergy Verified 04/12/23 09:46 Exam Constitutional Vital Signs - 24 hr 04/12/23 10:30 04/12/23 10:33 04/12/23 11:10 Temperature 99.9 F H Pulse Rate Pulse Rate [Monitor] 121 H Respiratory Rate 32 H Blood Pressure Blood Pressure [Right Arm] 134/77 H Pulse Oximetry 98 98 Oxygen Delivery Method Nasal Cannula Room Air Oxygen Delivery Flow Rate 3 04/12/23 11:32 04/12/23 11:59 04/12/23 12:19 Temperature 102.4 F H Pulse Rate 103 H Pulse Rate [Monitor] Respiratory Rate 24 Blood Pressure Blood Pressure [Right Arm] Pulse Oximetry 98 97 Oxygen Delivery Method Nasal Cannula Oxygen Delivery Flow Rate 2 2 04/12/23 13:41 04/12/23 15:38 04/12/23 16:12 Temperature 98.9 F Pulse Rate 84 77 Pulse Rate [Monitor] Respiratory Rate 18 18 Blood Pressure 102/69 106/72 117/65 Blood Pressure [Right Arm] Pulse Oximetry 96 94 L 95 Oxygen Delivery Method Room Air Oxygen Delivery Flow Rate 1 04/12/23 17:20 04/12/23 17:20 04/12/23 19:15 Temperature 98.4 F 97.7 F Pulse Rate 77 Pulse Rate [Monitor] 68 Respiratory Rate 17 19 Blood Pressure Blood Pressure [Right Arm] 108/76 Pulse Oximetry 96 96 Oxygen Delivery Method Room Air Room Air Oxygen Delivery Flow Rate 04/12/23 19:46 04/12/23 09:59 04/12/23 10:00 Temperature Pulse Rate 136 H 134 H Pulse Rate [Monitor] Respiratory Rate 16 42 H 40 H Blood Pressure Blood Pressure [Right Arm] Pulse Oximetry 96 91 L Oxygen Delivery Method Oxygen Delivery Flow Rate 04/12/23 10:13 04/12/23 10:14 04/12/23 10:23 Temperature Pulse Rate 120 H 120 H 125 H Pulse Rate [Monitor] Respiratory Rate 46 H 39 H 39 H Blood Pressure 175/112 H 133/86 H Blood Pressure [Right Arm] Pulse Oximetry 93 L 98 98 Oxygen Delivery Method Oxygen Delivery Flow Rate 04/12/23 10:30 04/12/23 10:45 04/12/23 11:00 Temperature Pulse Rate 110 H 101 H 116 H Pulse Rate [Monitor] Respiratory Rate 34 H 30 H 24 Blood Pressure 134/77 H 154/87 H 130/98 H Blood Pressure [Right Arm] Pulse Oximetry 98 98 Oxygen Delivery Method Oxygen Delivery Flow Rate 04/12/23 11:15 04/12/23 11:26 04/12/23 11:31 Temperature Pulse Rate 105 H 97 H Pulse Rate [Monitor] Respiratory Rate 32 H 30 H Blood Pressure 148/107 H 152/81 H 123/85 H Blood Pressure [Right Arm] Pulse Oximetry 98 Oxygen Delivery Method Oxygen Delivery Flow Rate 04/12/23 11:54 04/12/23 11:56 04/12/23 11:58 Temperature Pulse Rate 86 132 H 102 H Pulse Rate [Monitor] Respiratory Rate 10 L 28 H 25 H Blood Pressure 127/80 H Blood Pressure [Right Arm] Pulse Oximetry 97 97 Oxygen Delivery Method Oxygen Delivery Flow Rate 04/12/23 12:00 04/12/23 12:15 04/12/23 12:30 Temperature Pulse Rate 93 H 91 H 87 Pulse Rate [Monitor] Respiratory Rate 23 20 21 Blood Pressure 119/76 114/72 122/64 H Blood Pressure [Right Arm] Pulse Oximetry 97 98 97 Oxygen Delivery Method Oxygen Delivery Flow Rate 04/12/23 12:45 04/12/23 13:00 04/12/23 13:15 Temperature Pulse Rate 93 H 106 H 97 H Pulse Rate [Monitor] Respiratory Rate 20 19 20 Blood Pressure 111/78 115/79 106/73 Blood Pressure [Right Arm] Pulse Oximetry 97 96 96 Oxygen Delivery Method Oxygen Delivery Flow Rate 04/12/23 13:30 04/12/23 13:45 04/12/23 14:00 Temperature Pulse Rate 92 H 88 103 H Pulse Rate [Monitor] Respiratory Rate 18 17 18 Blood Pressure 102/69 110/67 104/63 Blood Pressure [Right Arm] Pulse Oximetry 96 96 96 Oxygen Delivery Method Oxygen Delivery Flow Rate 04/12/23 14:15 04/12/23 14:30 04/12/23 14:45 Temperature Pulse Rate 80 81 85 Pulse Rate [Monitor] Respiratory Rate 16 16 16 Blood Pressure 95/72 93/65 95/70 Blood Pressure [Right Arm] Pulse Oximetry 96 97 96 Oxygen Delivery Method Oxygen Delivery Flow Rate 04/12/23 15:00 04/12/23 15:15 04/12/23 15:25 Temperature Pulse Rate 94 H 79 94 H Pulse Rate [Monitor] Respiratory Rate 18 18 19 Blood Pressure 98/62 85/60 L 106/68 Blood Pressure [Right Arm] Pulse Oximetry 97 97 95 Oxygen Delivery Method Oxygen Delivery Flow Rate 04/12/23 15:30 04/12/23 15:45 04/12/23 16:00 Temperature Pulse Rate 76 73 77 Pulse Rate [Monitor] Respiratory Rate 18 18 17 Blood Pressure 106/72 106/69 117/65 Blood Pressure [Right Arm] Pulse Oximetry 92 L 94 L 96 Oxygen Delivery Method Oxygen Delivery Flow Rate 04/12/23 16:15 04/12/23 16:30 04/12/23 16:45 Temperature Pulse Rate 82 80 75 Pulse Rate [Monitor] Respiratory Rate 18 18 17 Blood Pressure 91/64 85/61 L 103/59 L Blood Pressure [Right Arm] Pulse Oximetry 95 96 Oxygen Delivery Method Oxygen Delivery Flow Rate 04/12/23 17:04 04/12/23 17:08 04/12/23 17:09 Temperature Pulse Rate 78 89 66 Pulse Rate [Monitor] Respiratory Rate 18 20 15 Blood Pressure 108/76 Blood Pressure [Right Arm] Pulse Oximetry 97 100 Oxygen Delivery Method Oxygen Delivery Flow Rate 04/12/23 19:08 04/12/23 20:58 04/12/23 22:20 Temperature 97.7 F 97.7 F Pulse Rate 68 67 Pulse Rate [Monitor] Respiratory Rate 16 Blood Pressure 99/56 L Blood Pressure [Right Arm] Pulse Oximetry Oxygen Delivery Method Oxygen Delivery Flow Rate 04/12/23 20:30 04/12/23 23:00 04/13/23 00:37 Temperature 97.5 F L Pulse Rate 61 Pulse Rate [Monitor] 68 Respiratory Rate 16 Blood Pressure Blood Pressure [Right Arm] Pulse Oximetry Oxygen Delivery Method Oxygen Delivery Flow Rate 04/13/23 00:38 04/12/23 19:08 04/12/23 20:14 Temperature Pulse Rate 64 73 Pulse Rate [Monitor] Respiratory Rate 14 Blood Pressure 99/56 L Blood Pressure [Right Arm] Pulse Oximetry Oxygen Delivery Method Oxygen Delivery Flow Rate 04/12/23 20:20 04/12/23 20:30 04/12/23 20:40 Temperature Pulse Rate 75 74 77 Pulse Rate [Monitor] Respiratory Rate 4 L 17 19 Blood Pressure Blood Pressure [Right Arm] Pulse Oximetry Oxygen Delivery Method Oxygen Delivery Flow Rate 04/12/23 20:50 04/12/23 21:00 04/12/23 21:10 Temperature Pulse Rate 67 65 69 Pulse Rate [Monitor] Respiratory Rate 14 15 0 L Blood Pressure Blood Pressure [Right Arm] Pulse Oximetry Oxygen Delivery Method Oxygen Delivery Flow Rate 04/12/23 21:20 04/12/23 21:30 04/12/23 21:40 Temperature Pulse Rate 64 61 67 Pulse Rate [Monitor] Respiratory Rate 0 L 0 L 0 L Blood Pressure Blood Pressure [Right Arm] Pulse Oximetry Oxygen Delivery Method Oxygen Delivery Flow Rate 04/12/23 21:50 04/12/23 22:00 04/12/23 22:10 Temperature Pulse Rate 68 58 L 64 Pulse Rate [Monitor] Respiratory Rate 0 L 0 L 0 L Blood Pressure Blood Pressure [Right Arm] Pulse Oximetry Oxygen Delivery Method Oxygen Delivery Flow Rate 04/12/23 22:20 04/12/23 22:30 04/12/23 22:40 Temperature Pulse Rate 62 62 73 Pulse Rate [Monitor] Respiratory Rate 0 L 13 13 Blood Pressure Blood Pressure [Right Arm] Pulse Oximetry Oxygen Delivery Method Oxygen Delivery Flow Rate 04/12/23 22:50 04/12/23 23:00 04/12/23 23:10 Temperature Pulse Rate 62 67 68 Pulse Rate [Monitor] Respiratory Rate 15 15 6 L Blood Pressure Blood Pressure [Right Arm] Pulse Oximetry Oxygen Delivery Method Oxygen Delivery Flow Rate 04/12/23 23:11 04/12/23 23:11 04/12/23 23:11 Temperature Pulse Rate 65 Pulse Rate [Monitor] Respiratory Rate 4 L Blood Pressure 101/59 L 101/59 L Blood Pressure [Right Arm] Pulse Oximetry Oxygen Delivery Method Oxygen Delivery Flow Rate 04/12/23 23:20 04/12/23 23:30 04/12/23 23:40 Temperature Pulse Rate 62 66 58 L Pulse Rate [Monitor] Respiratory Rate 14 16 13 Blood Pressure Blood Pressure [Right Arm] Pulse Oximetry Oxygen Delivery Method Oxygen Delivery Flow Rate 04/12/23 23:50 04/13/23 00:00 04/13/23 00:10 Temperature Pulse Rate 66 64 83 Pulse Rate [Monitor] Respiratory Rate 17 17 17 Blood Pressure Blood Pressure [Right Arm] Pulse Oximetry Oxygen Delivery Method Oxygen Delivery Flow Rate 04/13/23 00:14 04/13/23 00:14 04/13/23 00:14 Temperature Pulse Rate 82 Pulse Rate [Monitor] Respiratory Rate 11 L Blood Pressure 117/77 117/77 Blood Pressure [Right Arm] Pulse Oximetry Oxygen Delivery Method Oxygen Delivery Flow Rate 04/13/23 00:20 04/13/23 00:30 04/13/23 01:20 Temperature Pulse Rate 68 60 64 Pulse Rate [Monitor] Respiratory Rate 7 L 20 Blood Pressure Blood Pressure [Right Arm] Pulse Oximetry Oxygen Delivery Method Oxygen Delivery Flow Rate 04/13/23 02:42 04/13/23 03:00 04/13/23 03:53 Temperature Pulse Rate 76 66 Pulse Rate [Monitor] 75 Respiratory Rate 18 16 Blood Pressure Blood Pressure [Right Arm] 124/74 H Pulse Oximetry 97 Oxygen Delivery Method Room Air Oxygen Delivery Flow Rate 04/12/23 09:46 Temperature 99.6 F Pulse Rate Pulse Rate [Monitor] 123 H Respiratory Rate 36 H Blood Pressure Blood Pressure [Right Arm] 164/104 H Pulse Oximetry 96 Oxygen Delivery Method Nasal Cannula Oxygen Delivery Flow Rate Chest Common normals: inspection of chest normal Respiratory Common normals: normal respiratory effort, no retractions and no use of accessory muscles Cardio Rhythm: abnormal rhythm GI Common normals: Normal to inspection, nondistended, normoactive bowel sounds present, soft to palpation, non-tender and no hepatosplenomegaly Results Labs Labs: Short CBC 04/12/23 04/13/23 Range/Units 09:57 03:58 WBC 7.6 11.5 H (4.0-11.0) 10^3/uL Hgb 15.2 12.5 L D (14.0-18.0) g/dL Hct 45.2 37.7 L (42.0-54.0) % Plt Count 234 152 (150-450) 10^3/uL BMP 04/12/23 04/13/23 09:57 03:58 Sodium 129 L 141 Potassium 3.5 3.3 L Chloride 97 L 108 H Carbon Dioxide 24.4 24.7 BUN 18.0 16.0 Creatinine 1.31 H 1.27 Glucose 118 H 100 Calcium 8.3 L 7.5 L Liver Function 04/12/23 04/13/23 Range/Units 09:57 03:58 Total Bilirubin 1.9 H 1.3 H (0.2-1.0) mg/dL AST 123 H 63 H (15-37) U/L ALT 147 H 88 H (16-63) U/L Albumin 3.7 2.5 L (3.4-5.0) g/dL Urine 04/12/23 Range/Units 11:26 Urine Color Lt. yellow (YELLOW) Urine Clarity Clear (CLEAR) Urine pH 6.0 (5.0-9.0) Ur Specific [place] 1.020 (1.005-1.025) Urine Protein Negative (NEG/TRACE) mg/dL Urine Glucose (UA) Negative (NEGATIVE) mg/dL Assessment and Plan Assessment and Plan (1) Atrial fibrillation with rapid ventricular response: (2) Acalculous cholecystitis: Plan After the patient by surgeon, feeling not gallbladder issue. Stool sample showing E. coli. Will treat for the E. coli with oral medications as an outpatient. Atrial fibrillation with rapid ventricular sponsor with rate controlled currently. He should continue his home medications. Unable to verify the list as it came from [facility]. Only medication changes would be the addition of ciprofloxacin and Levsin for pain control to his abdomen. Follow-up with his PCP after he returns to [facility] tomorrow
--- NOTE | 2023-04-13 08:51 | CA_ITS ---
Patient: NANCY REYNOLDS Exam Date: 04/13/2023 : 1950 Gender:M Ordering : DR ELENI TRISTAN . Admission #: [id number] Family : Order #: [id number] CLICK HERE TO VIEW EXAM ECHOCARDIOGRAM REPORT PROCEDURE: CA ECHO DOPPLER COMPLETE INDICATIONS: Afib w/RVR, general weakness COMPARISON: None. DESCRIPTION: COMPLETE ECHOCARDIOGRAM Real-time transthoracic echocardiography with 2D, M-mode, spectral and color flow Doppler performed. QUALITY: Technical quality was good. LEFT VENTRICLE: Normal chamber size. Normal wall thickness. Global left ventricular systolic function is normal. LV EF: Estimated left ventricular ejection fraction is 55% DIASTOLIC: Not adequately assessed due to heart rhythm. ATRIAL SEPTUM: LEFT ATRIUM: Severe dilatation. RIGHT ATRIUM: Moderate dilatation. RIGHT VENTRICLE: Mild dilatation. Normal right ventricular systolic function. TRICUSPID VALVE: Normal mobility and thickness. No stenosis with mild to moderate regurgitation. Mild pulmonary hypertension. RVSP 37 mmHg MITRAL VALVE: Normal mobility and thickness. No evidence of mitral valve stenosis. There is no mitral annular calcification. Mild to moderate mitral regurgitation. AORTIC VALVE: Normal trileaflet appearance. Mildly calcified aortic valve. Normal leaflet mobility. No evidence of aortic valve stenosis. No aortic regurgitation. AORTIC ROOT: Normal diameter and appearance. PULMONIC VALVE: Normal thickness and mobility. No stenosis. No regurgitation. PERICARDIUM: No evidence of pericardial effusion. IVC: Collapses with inspirations. Normal size. PLEURA: CONCLUSION: 1. Normal ventricular systolic function. Estimated LVEF is 55% 2. Mild to moderate mitral and tricuspid regurgitation. 3. Moderate to severe biatrial dilatation. 4. Mildly elevated right-sided pressures. 5. No pericardial effusion. 6. The patient appears to be in atrial fibrillation with controlled ventricular response. Adult Echocardiography Procedure Report Left Ventricle LVEDD (3.7 - 5.6 cm): 4.68 cm LVESD (2.2 - 4.0 cm): 2.97 cm LVIVS thickness (0.6 - 1.2 cm): 1.03 cm LVPW thickness (0.5 - 1.0 cm): 0.91 cm e': 0.16 m/s E - e': 6.11 LVOT Max Gradient: 2.55 mm[Hg], 2.90 mm[Hg] LVOT Area (cm2): 0.83 m/s Peak Velocity (LVOT): 0.80 m/s, 0.85 m/s Mean Velocity (LVOT): 0.60 m/s LVOT Diameter 2.24 cm Left Ventricular Ejection Fraction: 55 % Left Atrium LA Volume Index (2D A2C): 51.72 ml/m2 Left Atrium Systolic Dimension: 5.16 cm Mitral Valve Mitral Valve E-Wave Peak Velocity: 1.00 m/s Right Ventricle RV Internal Diastolic Dimension: 4.38 cm Aorta AO Root Diam: 3.23 cm Ascending Ao Diam: 3.23 cm Aortic Valve AoV Area (Peak Liu): 3.15 cm2, 3.03 cm2, 3.26 cm2 AoV Area (VTI): 2.93 cm2, 2.74 cm2, 3.12 cm2 Peak Velocity(Antegrade Flow): 1.03 m/s, 1.02 m/s Peak Gradient(Antegrade Flow): 4.28 mm[Hg], 4.20 mm[Hg] Mean Velocity(Antegrade Flow): 0.69 m/s, 0.71 m/s Mean Gradient(Antegrade Flow): 2.11 mm[Hg], 2.31 mm[Hg] Velocity Time Integral: 20.35 cm, 20.12 cm Tricuspid Valve Peak Velocity (Regurgitant Flow): 2.91 m/s, 2.76 m/s, 2.87 m/s Pulmonic Valve Mean Gradient: 1.56 mm[Hg], 2.37 mm[Hg], 2.02 mm[Hg] Mean Velocity: 0.57 m/s, 0.73 m/s, 0.67 m/s Peak Velocity: 0.94 m/s Peak Gradient: 2.94 mm[Hg], 4.20 mm[Hg], 3.50 mm[Hg] Right Atrium Right Atrium Systolic Pressure: 116.01 ml, 116.01 ml Dictated by: Reggie Coronado M.D. on 04/15/2023 at 10:17 Approved by: Reggie Coronado M.D. on 04/15/2023 at 10:21
--- NOTE | 2023-04-13 09:36 | CM.NOTE ---
Rounds made with Dr. Cartagena. Reviewed plans with Mr. Rincon and the family. Daughter translates most of the information to father and Dr. Cartagena. Plan is for Echo and Surgery Consult. Family in agreement with plan. Potential discharge later today depending on Surgery input and Echo results.
--- NOTE | 2023-04-13 10:00 | NM_ITS ---
[place] [id number] Patient Name: NANCY REYNOLDS MRN: [id number] date: 1950 Sex: M Assigned Patient Location: ICU Current Patient Location: ICU Accession/Order Number: [id number] Exam Date: 04/13/2023 09:30 Report Date: 04/13/2023 13:42 At the request of: ELENI TRISTAN Procedure: NM hepatobiliary w pharm EXAMINATION: NM hepatobiliary w pharm HISTORY: acute cholecystitis COMPARISON: No relevant comparison available. TECHNIQUE: Radionuclide hepatobiliary imaging was performed after intravenous injection of 5.1 mCi Tc-99m ALVARADO derivative with sequential acquisitions every 1 minute for one hour. Hepatobiliary imaging with gallbladder ejection fraction analysis was then performed with sequential imaging every 1 minute for 60 minutes following ingestion of 8 oz. Ensure Plus. FINDINGS: LIVER: Normal, prompt and uniform radiotracer uptake and clearing. BILIARY DUCTS: Normal radioisotopic biliary excretion. GALLBLADDER: Normal with no evidence of cystic duct obstruction. INTESTINE: Normal with no evidence of common biliary ductal obstruction. EJECTION FRACTION: 0 % within 60 minutes. (Normal EF > 38%). OTHER: Negative. IMPRESSION: 1. No gallbladder emptying and minimal gallbladder filling during study; findings suggest gallbladder or cystic duct obstruction. Electronically authenticated by: VISHNU ZHOU Date: 04/13/2023 13:42
--- NOTE | 2023-04-13 10:32 | SWNOTE1 ---
See case management note. Pt's daughter in room with pt. He is from [facility] visiting family. Possible dc later today? Pt has a flight home possibly tomorrow.
--- NOTE | 2023-04-13 13:57 | P.GSCN_ITS ---
History of Present Illness Consult details Narrative: This patient is a 72-year-old [place] male who presented to the emergency department yesterday with chief complaint of weakness. His workup in the Emergency Department including lab work and CT of the abdomen and pelvis were reviewed. Patient had a normal white blood count. CT revealed a dilated gallbladder although with no wall thickening and no pericholecystic fluid. There were no stones seen. Through the emergency department as well as today the patie nt denies any abdominal pain whatsoever. He has been eating well while at home. He denies any prior gallbladder issues. This history was obtained through the use of an shift supervisor melting. Patient also had ultrasound done with similar findings and again no signs of acute cholecystitis. HIDA scan done earlier today did show gallbladder filling although limited. This would not be consistent with acute cholecystitis. Review of Systems ROS Status of ROS 10 or more systems reviewed and unremarkable except as noted in history and below [facility] Medical History (Updated 04/13/23 @ 14:20 by Ezekiel Shanks MD) Surgical History (Updated 04/13/23 @ 14:07 by Ezekiel Shanks MD) Social History (Updated 04/12/23 @ 17:55 by Cande Hargrove) Within the past year, how often did you have six or more drinks on one occasion: less than monthly Smoking status: Never smoker Non-prescribed substance use: denies use Meds Home Medications and Allergies Home Medications Medication Instructions Recorded Confirmed Type Unobtainable 04/12/23 04/12/23 History Allergies Allergy/AdvReac Type Severity Reaction Status Date / Time No Known Drug Allergies Allergy Verified 04/12/23 09:46 Exam Constitutional Vital Signs - 24 hr 04/12/23 15:38 04/12/23 16:12 04/12/23 17:20 Temperature 98.4 F Pulse Rate 77 77 Pulse Rate [Monitor] Respiratory Rate 18 17 Blood Pressure 106/72 117/65 Blood Pressure [Right Arm] 108/76 Pulse Oximetry 94 L 95 96 Oxygen Delivery Method Room Air Room Air 04/12/23 17:20 04/12/23 19:15 04/12/23 19:46 Temperature 97.7 F Pulse Rate Pulse Rate [Monitor] 68 Respiratory Rate 19 16 Blood Pressure Blood Pressure [Right Arm] Pulse Oximetry 96 Oxygen Delivery Method Room Air 04/12/23 14:00 04/12/23 14:15 04/12/23 14:30 Temperature Pulse Rate 103 H 80 81 Pulse Rate [Monitor] Respiratory Rate 18 16 16 Blood Pressure 104/63 95/72 93/65 Blood Pressure [Right Arm] Pulse Oximetry 96 96 97 Oxygen Delivery Method 04/12/23 14:45 04/12/23 15:00 04/12/23 15:15 Temperature Pulse Rate 85 94 H 79 Pulse Rate [Monitor] Respiratory Rate 16 18 18 Blood Pressure 95/70 98/62 85/60 L Blood Pressure [Right Arm] Pulse Oximetry 96 97 97 Oxygen Delivery Method 04/12/23 15:25 04/12/23 15:30 04/12/23 15:45 Temperature Pulse Rate 94 H 76 73 Pulse Rate [Monitor] Respiratory Rate 19 18 18 Blood Pressure 106/68 106/72 106/69 Blood Pressure [Right Arm] Pulse Oximetry 95 92 L 94 L Oxygen Delivery Method 04/12/23 16:00 04/12/23 16:15 04/12/23 16:30 Temperature Pulse Rate 77 82 80 Pulse Rate [Monitor] Respiratory Rate 17 18 18 Blood Pressure 117/65 91/64 85/61 L Blood Pressure [Right Arm] Pulse Oximetry 96 95 96 Oxygen Delivery Method 04/12/23 16:45 04/12/23 17:04 04/12/23 17:08 Temperature Pulse Rate 75 78 89 Pulse Rate [Monitor] Respiratory Rate 17 18 20 Blood Pressure 103/59 L Blood Pressure [Right Arm] Pulse Oximetry 97 Oxygen Delivery Method 04/12/23 17:09 04/12/23 19:08 04/12/23 20:58 Temperature 97.7 F 97.7 F Pulse Rate 66 68 Pulse Rate [Monitor] Respiratory Rate 15 16 Blood Pressure 108/76 99/56 L Blood Pressure [Right Arm] Pulse Oximetry 100 Oxygen Delivery Method 04/12/23 22:20 04/12/23 20:30 04/12/23 23:00 Temperature Pulse Rate 67 61 Pulse Rate [Monitor] 68 Respiratory Rate 16 Blood Pressure Blood Pressure [Right Arm] Pulse Oximetry Oxygen Delivery Method 04/13/23 00:37 04/13/23 00:38 04/12/23 19:08 Temperature 97.5 F L Pulse Rate 64 Pulse Rate [Monitor] Respiratory Rate Blood Pressure 99/56 L Blood Pressure [Right Arm] Pulse Oximetry Oxygen Delivery Method 04/12/23 20:14 04/12/23 20:20 04/12/23 20:30 Temperature Pulse Rate 73 75 74 Pulse Rate [Monitor] Respiratory Rate 14 4 L 17 Blood Pressure Blood Pressure [Right Arm] Pulse Oximetry Oxygen Delivery Method 04/12/23 20:40 04/12/23 20:50 04/12/23 21:00 Temperature Pulse Rate 77 67 65 Pulse Rate [Monitor] Respiratory Rate 19 14 15 Blood Pressure Blood Pressure [Right Arm] Pulse Oximetry Oxygen Delivery Method 04/12/23 21:10 04/12/23 21:20 04/12/23 21:30 Temperature Pulse Rate 69 64 61 Pulse Rate [Monitor] Respiratory Rate 0 L 0 L 0 L Blood Pressure Blood Pressure [Right Arm] Pulse Oximetry Oxygen Delivery Method 04/12/23 21:40 04/12/23 21:50 04/12/23 22:00 Temperature Pulse Rate 67 68 58 L Pulse Rate [Monitor] Respiratory Rate 0 L 0 L 0 L Blood Pressure Blood Pressure [Right Arm] Pulse Oximetry Oxygen Delivery Method 04/12/23 22:10 04/12/23 22:20 04/12/23 22:30 Temperature Pulse Rate 64 62 62 Pulse Rate [Monitor] Respiratory Rate 0 L 0 L 13 Blood Pressure Blood Pressure [Right Arm] Pulse Oximetry Oxygen Delivery Method 04/12/23 22:40 04/12/23 22:50 04/12/23 23:00 Temperature Pulse Rate 73 62 67 Pulse Rate [Monitor] Respiratory Rate 13 15 15 Blood Pressure Blood Pressure [Right Arm] Pulse Oximetry Oxygen Delivery Method 04/12/23 23:10 04/12/23 23:11 04/12/23 23:11 Temperature Pulse Rate 68 65 Pulse Rate [Monitor] Respiratory Rate 6 L 4 L Blood Pressure 101/59 L Blood Pressure [Right Arm] Pulse Oximetry Oxygen Delivery Method 04/12/23 23:11 04/12/23 23:20 04/12/23 23:30 Temperature Pulse Rate 62 66 Pulse Rate [Monitor] Respiratory Rate 14 16 Blood Pressure 101/59 L Blood Pressure [Right Arm] Pulse Oximetry Oxygen Delivery Method 04/12/23 23:40 04/12/23 23:50 04/13/23 00:00 Temperature Pulse Rate 58 L 66 64 Pulse Rate [Monitor] Respiratory Rate 13 17 17 Blood Pressure Blood Pressure [Right Arm] Pulse Oximetry Oxygen Delivery Method 04/13/23 00:10 04/13/23 00:14 04/13/23 00:14 Temperature Pulse Rate 83 82 Pulse Rate [Monitor] Respiratory Rate 17 11 L Blood Pressure 117/77 Blood Pressure [Right Arm] Pulse Oximetry Oxygen Delivery Method 04/13/23 00:14 04/13/23 00:20 04/13/23 00:30 Temperature Pulse Rate 68 60 Pulse Rate [Monitor] Respiratory Rate 7 L 20 Blood Pressure 117/77 Blood Pressure [Right Arm] Pulse Oximetry Oxygen Delivery Method 04/13/23 01:20 04/13/23 02:42 04/13/23 03:00 Temperature Pulse Rate 64 76 Pulse Rate [Monitor] 75 Respiratory Rate 18 Blood Pressure Blood Pressure [Right Arm] Pulse Oximetry Oxygen Delivery Method 04/13/23 03:53 04/13/23 08:07 04/13/23 08:07 Temperature 98.1 F Pulse Rate 66 Pulse Rate [Monitor] Respiratory Rate 16 18 16 Blood Pressure Blood Pressure [Right Arm] 124/74 H 118/77 Pulse Oximetry 97 98 Oxygen Delivery Method Room Air Room Air Common normals: no apparent distress, average body habitus, healthy appearing and alert Orientation/consciousness: Yes awake, Yes oriented to person and Yes oriented to place [facility] Common normals: normocephalic and head/scalp atraumatic Neck & C-Spine Common normals: supple General: no tenderness GI Common normals: soft to palpation, non-tender and no masses Extremity Common normals: normal to inspection and full ROM Neuro Common normals: oriented x3 and moves all extremities Psych Common normals: mental status grossly normal Results Labs Labs: Abnormal lab results 04/12/23 04/12/23 04/12/23 Range/Units 10:50 12:47 15:28 WBC (4.0-11.0) 10^3/uL RBC (4.70-6.10) 10^6/uL Hgb (14.0-18.0) g/dL Hct (42.0-54.0) % Neut % (Auto) (43.0-75.0) % Lymph % (Auto) (20.5-60.0) % Eos % (Auto) (0.9-7.0) % Neut # (Auto) (1.4-6.5) 10^3/uL Lymph # (Auto) (1.2-3.8) 10^3/uL Hoke # (Auto) (0.3-0.8) 10^3/uL Potassium (3.5-5.1) mmol/L Chloride (98-107) mmol/L Est GFR (Non-Af Amer) (>=60) Calcium (8.5-10.1) mg/dL Total Bilirubin (0.2-1.0) mg/dL AST (15-37) U/L ALT (16-63) U/L Troponin I High Sens 80.1 H* 95.1 H* (4.0-76.1) pg/mL NT-Pro-B Natriuret Pep 4424.0 H* (<=900.0) pg/mL Total Protein (6.4-8.2) g/dL Albumin (3.4-5.0) g/dL Lipase 66.0 L (73.0-393.0) U/L Enterobacterales (PCR) Detected A* (NOT DETECTE) E. coli (PCR) Detected A* (NOT DETECTE) 04/13/23 Range/Units 03:58 WBC 11.5 H (4.0-11.0) 10^3/uL RBC 4.29 L (4.70-6.10) 10^6/uL Hgb 12.5 L D (14.0-18.0) g/dL Hct 37.7 L (42.0-54.0) % Neut % (Auto) 86.8 H (43.0-75.0) % Lymph % (Auto) 3.4 L (20.5-60.0) % Eos % (Auto) 0.7 L (0.9-7.0) % Neut # (Auto) 10.0 H (1.4-6.5) 10^3/uL Lymph # (Auto) 0.4 L (1.2-3.8) 10^3/uL Hoke # (Auto) 1.0 H (0.3-0.8) 10^3/uL Potassium 3.3 L (3.5-5.1) mmol/L Chloride 108 H (98-107) mmol/L Est GFR (Non-Af Amer) 55 L (>=60) Calcium 7.5 L (8.5-10.1) mg/dL Total Bilirubin 1.3 H (0.2-1.0) mg/dL AST 63 H (15-37) U/L ALT 88 H (16-63) U/L Troponin I High Sens (4.0-76.1) pg/mL NT-Pro-B Natriuret Pep 4704.0 H* (<=900.0) pg/mL Total Protein 5.6 L (6.4-8.2) g/dL Albumin 2.5 L (3.4-5.0) g/dL Lipase (73.0-393.0) U/L Enterobacterales (PCR) (NOT DETECTE) E. coli (PCR) (NOT DETECTE) Diabetes panel 04/13/23 Range/Units 03:58 Sodium 141 (136-145) mmol/L Potassium 3.3 L (3.5-5.1) mmol/L Chloride 108 H (98-107) mmol/L Carbon Dioxide 24.7 (21.0-32.0) mmol/L BUN 16.0 (7.0-18.0) mg/dL Creatinine 1.27 (0.70-1.30) mg/dL Glucose 100 (74-106) mg/dL Calcium 7.5 L (8.5-10.1) mg/dL AST 63 H (15-37) U/L ALT 88 H (16-63) U/L Total Protein 5.6 L (6.4-8.2) g/dL Albumin 2.5 L (3.4-5.0) g/dL Calcium panel 04/13/23 Range/Units 03:58 Calcium 7.5 L (8.5-10.1) mg/dL Albumin 2.5 L (3.4-5.0) g/dL Pituitary panel 04/13/23 Range/Units 03:58 Sodium 141 (136-145) mmol/L Potassium 3.3 L (3.5-5.1) mmol/L Chloride 108 H (98-107) mmol/L Carbon Dioxide 24.7 (21.0-32.0) mmol/L BUN 16.0 (7.0-18.0) mg/dL Creatinine 1.27 (0.70-1.30) mg/dL Glucose 100 (74-106) mg/dL Calcium 7.5 L (8.5-10.1) mg/dL Adrenal panel 04/13/23 Range/Units 03:58 Sodium 141 (136-145) mmol/L Potassium 3.3 L (3.5-5.1) mmol/L Chloride 108 H (98-107) mmol/L Carbon Dioxide 24.7 (21.0-32.0) mmol/L BUN 16.0 (7.0-18.0) mg/dL Creatinine 1.27 (0.70-1.30) mg/dL Glucose 100 (74-106) mg/dL Calcium 7.5 L (8.5-10.1) mg/dL Total Bilirubin 1.3 H (0.2-1.0) mg/dL AST 63 H (15-37) U/L ALT 88 H (16-63) U/L Total Protein 5.6 L (6.4-8.2) g/dL Albumin 2.5 L (3.4-5.0) g/dL All other labs normal. Imaging Abdomen CT scan report/results: report reviewed and image reviewed Abdominal ultrasound report/results: report reviewed and image reviewed Assessment and Plan Assessment and Plan (1) Abnormal CT of the abdomen: Plan Assessment - with the above findings and following exam I do not find any evidence of acute cholecystitis. Patient has a completely benign abdominal exam. Plan - from a surgical standpoint I do not see any indication for invasive measures. Patient may be initiated on a diet from my standpoint and this will be ordered. Can be discharged when stable from a medical condition.
[2023-04-13 14:03] LABS: Basophils Percent Auto 0.3 % (0.2-2.0); Eosinophils Absolute Auto 0.1 10^3/uL (0.0-0.7); Eosinophils Percent Auto 0.7 % (0.9-7.0); Hemoglobin 14.5 g/dL (14.0-18.0); Immature Granulocytes Abs Auto 0.04 10^3/uL (0.00-0.03); Immature Granulocytes Pct Auto 0.4 % (0.0-0.5); Lymphocytes Absolute Auto 0.4 10^3/uL (1.2-3.8); Lymphocytes Percent Auto 3.4 % (20.5-60.0); Mean Corpuscular HGB Conc 34.5 g/dL (29.9-35.2); Mean Corpuscular Hemoglobin 29.9 pg (25.9-34.0); Mean Corpuscular Volume 86.6 fL (80.0-94.0); Mean Platelet Volume 9.8 fL (9.5-13.5); Monocytes Absolute Auto 1.1 10^3/uL (0.3-0.8); Monocytes Percent Auto 10.5 % (1.7-12.0); Neutrophils Absolute Auto 9.2 10^3/uL (1.4-6.5); Neutrophils Percent Auto 84.7 % (43.0-75.0); Platelet Count 164 10^3/uL (150-450); Red Blood Count 4.85 10^6/uL (4.70-6.10); Red Cell Distribution Width 13.6 % (11.0-15.0); White Blood Count 10.9 10^3/uL (4.0-11.0)
== END 2023-04-13 16:44 | disposition home or self-care (01) ==
LOC: ER 16:20 → ICU 17:50
PROVIDERS: Admitting Provider Family Medicine; Emergency Provider Emergency Medicine; Visit Provider Family Medicine
DX: A41.51 Sepsis due to Escherichia coli [E. coli] (principal); I48.91 Unspecified atrial fibrillation; K81.9 Cholecystitis, unspecified; R93.5 Abnormal findings on diagnostic imaging of other abdominal regions, including retroperitoneum; R53.1 Weakness; R06.02 Shortness of breath; R07.9 Chest pain, unspecified; Z79.01 Long term (current) use of anticoagulants; Z79.899 Other long term (current) drug therapy; B96.20 Unspecified Escherichia coli [E. coli] as the cause of diseases classified elsewhere; J02.9 Acute pharyngitis, unspecified
CPT/HCPCS: 0202U; 36415; 71045; 74177; 76705; 78227; 80053; 81003; 81015; 83605; 83690; 83880; 84484; 85025; 85610; 87040; 87081; 87150; 87186; 87804; 87880; 93005; 93306; 96365; 96367; 96375; 99285; A9537; G0328; G0378; J3370; Q9967